=== PATIENT | male | born 1985 | race Caucasian/White ===

== ENCOUNTER 2021-01-24 13:34 | Inpatient (IN) | payer MEDICAID, SELFPAY ==
[2021-01-24 13:36] VITALS: BP 207/113; PULSE 103; RESP 15; TEMP 36.8; O2SAT 94; BMI 38.0
[2021-01-24 14:02] VITALS: O2SAT 93
[2021-01-24 14:05] VITALS: BP 171/121; PULSE 97; RESP 18; O2SAT 93
[2021-01-24 14:12] LABS: Basophils # 0.1 10^3/uL (0.0-0.1); Basophils % 0.7 %; Eosinophils % 0.3 %; Hematocrit 47.8 % (42.0-52.0); Lymphocytes # 2.9 10^3/uL (0.8-4.8); Lymphocytes % 19.8 %; Mean Corpuscular HGB Conc 33.5 g/dL (30.0-36.0); Mean Corpuscular Hemoglobin 31.3 pg (28.0-34.0); Mean Corpuscular Volume 93.4 fL (80-94); Mean Platelet Volume 8.9 fL (7.4-10.4); Monocytes # 1.1 10^3/uL (0.2-0.9); Monocytes % 7.6 %; Neutrophils % 71.3 %; Nucleated Red Blood Cells % 0 %; Platelet Count 419 10^3/cmm (130-400); Red Blood Count 5.12 10^6/uL (4.1-5.3); Red Cell Distribution Width 13.2 % (12.1-15.1); White Blood Count 14.6 10^3/uL (4.0-10.0)
--- NOTE | 2021-01-24 14:12 | CT_ITS ---
WS: [id number] CT HEAD TECHNIQUE: Noncontrast CT of the head obtained from the skullbase to the vertex. CLINICAL INFORMATION: AMS COMPARISON: None. DLP: 996.[address] scans at [facility] use at least one of these dose optimization techniques: automat ed exposure control; mA and/or kV adjustment per patient size (includes targeted exams where dose is matched to clinical indication); or iterative reconstruction. FINDINGS: Serpiginous area of increased attenuation in the right frontal lobe in the sulcus. This extends to th e cortex. Differential considerations include a prominent vessel or vascular malformation versus a sm all amount of subarachnoid hemorrhage. Recommend short interval follow-up to assess stability. In add ition this can be followed up with MRI. Normal espinoza-white differentiation. No evidence of mass or mass effect. Normal posterior fossa. No hyd rocephalus. Mastoid air cells are well aerated. Mild mucosal thickening paranasal sinuses. CT/CT head wo con* [id number] IMPRESSION: 1. Serpiginous area of increased attenuation right frontal lobe in the right f rontal sulcus. Differential considerations include vascular malformation versus a small amount of subarachnoid hemorrhage. Recommend short interval follow-up head CT to exclude hemorrhage. 2. In addition, recommend further evaluation with MRI/MRA without and with henrry olinium enhancement to assess for vascular malformation. 3. Normal espinoza-white differentiation. 4. No hydrocephalus. 5. No other significant findings. Notified Annie Steiner MD [facility] [place] at 01/24/2021 3:10 PM.
--- NOTE | 2021-01-24 14:12 | ECG_ITS ---
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 Measurements Intervals [place] Rate: 99 P: 48 GA: 137 QRS: 29 QRSD: 92 T: 42 QT: 330 QTc: 424 Interpretive Statements SINUS RHYTHM POSSIBLE LEFT ATRIAL ENLARGEMENT [-0.1mV P WAVE IN V1/V2] No previous ECG available for comparison Electronically Signed On 01-25-2021 11:07:15 GIN FEEDER by Yasmeen Lomax M.D. [email or web address] memorial hospitalBoondsouthwest general health [id number]
[2021-01-24 14:34] LABS: Alanine Aminotransferase 19 U/L (0-41); Albumin Level 4.6 g/dL (3.5-5.2); Alcohol Level 70 mg/dL (0-10); Alkaline Phosphatase 104 IU/L (40-130); Anion Gap 18.4 (5-19); Aspartate Amino Transferase 22 U/L (0-40); Blood Urea Nitrogen 6 mg/dL (6-20); Calcium 9.3 mg/dL (8.5-10.5); Carbon Dioxide 24 mmol/L (22-29); Chloride 97 mmol/L (98-107); Globulin 2.7 g/dL (1.3-4.6); Glomerular Filtration Rate 128.3 mL/min (90-130); Glucose 101 mg/dL (65-115); Osmolality Calculated 278 mOsm/kg (285-295); Potassium 4.4 mmol/L (3.5-5.1); Sodium 135 mmol/L (136-145); Total Bilirubin 0.5 mg/dL (0.15-1.2); Total Protein 7.3 g/dL (6.6-8.7)
[2021-01-24] MEDS: LORazepam 2 mg/mL INJ 1 mL IM (14:34)
[2021-01-24 14:37] LABS: Acetaminophen < 5.0 ug/mL (10-30); Salicylate < 0.3 mg/dL (3-10)
[2021-01-24] MEDS: ziprasidone 20 mg/mL SDV IM (14:47)
[2021-01-24 15:17] LABS: Add Urine Microscopic? NO
[2021-01-24 15:31] LABS: Bilirubin Urine Neg (Negative); Blood Urine Neg (Negative); Glucose Urine UA Norm (Normal); Ketones Urine Negative (Negative); Leukocyte Esterase Urine Negative (Negative); Nitrate Urine Negative (Negative); Protein Urine Neg (Negative); Urine Appearance Clear (CLEAR); Urine Color Straw (Yellow); Urobilinogen Urine Norm (Negative); pH Urine 5 (5-7)
[2021-01-24 15:38] LABS: Amphetamines Screen Urine Negative (Negative); Barbiturates Screen Urine Negative (Negative); Benzodiazepines Screen Urine Negative (Negative); Cocaine Screen Urine Negative (Negative); Opiate Screen Urine Negative (Negative); PCP Screen Urine Negative (Negative); THC Screen Urine Positive (Negative)
--- NOTE | 2021-01-24 16:58 | CTR_ITS ---
PROCEDURE INFORMATION: Exam: CT Angiography Head With Contrast, Arteries Exam date and time: 01/24/2021 5:27 PM Age: 35 years old Clinical indication: Cognitive deficit; Altered mental status; Additional info: ? Sah vs vascular malformation TECHNIQUE: Imaging protocol: Computed tomography angiography of the head with intravenous contrast. 3D rendering (Not supervised by radiologist): MIP and/or 3D reconstructed images were created by the technologist. Radiation optimization: All CT scans at this facility use at least one of these dose optimization techniques: automated exposure control; mA and/or kV adjustment per patient size (includes targeted exams where dose is matched to clinical indication); or iterative reconstruction. Contrast material: OMNI 350; Contrast volume: 95 ml; Contrast route: INTRAVENOUS (IV); COMPARISON: No relevant prior studies available. RADIATION DOSE METRICS: Total DLP (mGy-cm): 2575.58 FINDINGS: ANTERIOR CIRCULATION: Right internal carotid artery: Unremarkable. Intracranial segment is patent with no significant stenosis. No aneurysm. Right middle cerebral artery: Unremarkable. No occlusion or significant stenosis. No aneurysm. Right anterior cerebral artery: Unremarkable. No occlusion or significant stenosis. No aneurysm. Left internal carotid artery: Unremarkable. Intracranial segment is patent with no significant stenosis. No aneurysm. Left middle cerebral artery: Unremarkable. No occlusion or significant stenosis. No aneurysm. Left anterior cerebral artery: Unremarkable. No occlusion or significant stenosis. No aneurysm. POSTERIOR CIRCULATION: Right vertebral artery: Unremarkable. No occlusion or significant stenosis. No aneurysm. Left vertebral artery: Unremarkable. No occlusion or significant stenosis. No aneurysm. Basilar artery: Unremarkable. No occlusion or significant stenosis. No aneurysm. Right posterior cerebral artery: Unremarkable. No occlusion or significant stenosis. No aneurysm. Left posterior cerebral artery: Unremarkable. No occlusion or significant stenosis. No aneurysm. Brain: There is a prominent cortical vein in the right frontal lobe with smaller feature veins beginning at the periventricular white matter. No definite cavernous blush or umbrella type pattern as typically seen with a developmental venous anomaly. Cerebral ventricles: No ventriculomegaly. Bones/joints: Unremarkable. No acute fracture. Soft tissues: Unremarkable. IMPRESSION: 1. No large vessel stenosis or occlusion. 2. 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 3. No subarachnoid hemorrhage seen. PROCEDURE INFORMATION: Exam: CT Angiography Neck With Contrast Exam date and time: 01/24/2021 5:27 PM Age: 35 years old Clinical indication: Cognitive deficit; Altered mental status; Additional info: ? Sah vs vascular malformation TECHNIQUE: Imaging protocol: Computed tomography angiography of the neck with intravenous contrast. 3D rendering (Not supervised by radiologist): MIP and/or 3D reconstructed images were created by the technologist. Radiation optimization: All CT scans at this facility use at least one of these dose optimization techniques: automated exposure control; mA and/or kV adjustment per patient size (includes targeted exams where dose is matched to clinical indication); or iterative reconstruction. Contrast material: OMNI 350; Contrast volume: 95 ml; Contrast route: INTRAVENOUS (IV); COMPARISON: No relevant prior studies available. RADIATION DOSE METRICS: Total DLP (mGy-cm): 2575.58 FINDINGS: Right common carotid artery: No stenosis. No dissection or occlusion. Right internal carotid artery: No stenosis of the extracranial segment. No dissection or occlusion. Right external carotid artery: No occlusion or stenosis of the origin. Right vertebral artery: No stenosis. No dissection or occlusion. Dominant vessel. Left common carotid artery: No stenosis. No dissection or occlusion. Left internal carotid artery: No stenosis of the extracranial segment. No dissection or occlusion. Left external carotid artery: No occlusion or stenosis of the origin. Left vertebral artery: No stenosis. No dissection or occlusion. Bones/joints: No acute fracture. Soft tissues: Normal. No significant soft tissue swelling. CT/CT angio headneck* [id number] IMPRESSION: No stenosis or occlusion. REFERENCES: NASCET CRITERIA. The degree of internal carotid artery stenosis is based on NASCET criteria. Normal is no stenosis. Mild is less than 50% stenosis. Moderate is 50-69% stenosis. Severe is 70% to 99% stenosis. Total occlusion is no detectable patent lumen. Radiation Dose CTDIVOL = (mGy): DLP = 2575.58 (mGy-cm)
[2021-01-24 17:19] VITALS: PULSE 91; RESP 16; O2SAT 95
[2021-01-24] MEDS: iohexol 350 mg/mL 100 mL Btl IV (17:27)
[2021-01-24 21:43] VITALS: BP 158/112; PULSE 88; RESP 19; TEMP 36.6; O2SAT 95
[2021-01-24] MEDS: trazodone 50 mg Tablet PO (22:07)
[2021-01-24] MEDS: hyDROXYzine 25 mg Capsule 50 MG PO (22:07)
[2021-01-24] MEDS: nicotine 2 mg Gum BUCCAL (22:07)
--- NOTE | 2021-01-24 22:09 | PC.NURSE ---
Patient continues to be very anxious and is unable to sleep. Vistaril 50mg PO and Trazodone 50mg PO given.
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
--- NOTE | 2021-01-24 23:47 | PC.NURSE ---
JOINT PAIN PT STATES HE IS IN CONSTANT PAIN, TYLENOL OFFERED AND DECLINED. PT SAYS IT IS RATED AT BASELINE OF 8 ON 1-10 PAIN SCALE. PT STATES, HE HAS BACK PAIN R/T DJD.
--- NOTE | 2021-01-25 00:42 | ED_ITS ---
HPI - Psych General: Chief Complaint: Psychiatric Symptoms Stated Complaint: SI/ BIPOLAR/ ETOH Time Seen by Provider: 01/24/21 13:35 Source: patient and EMS Mode of arrival: EMS History of Present Illness: HPI Narrative: This is a 35-year-old gentleman who was brought in in a psychotic episode. The patient was loud, belligerent, delusional, paranoid and did not give much of the history. He did say that he had smoked marijuana today and drank alcohol. He denies any methamphetamine use. He did not answer a lot of questions appropriately and some of the answers were tangential. He admits to thoughts of suicide as well as homicide. He says he wants to kill everybody around him. He was pacing in the room, refused to stay still. MD complaint: suicidal ideation Duration: constant Exacerbating factors: alcohol Context: recent alcohol abuse and recent drug abuse Associated psychiatric symptoms: delusions Associated symptoms: Reports delusions If self harm: admits thoughts of self harm Review of Systems General: Reports: ROS unobtainable due to mental status PFSH ED PFSH: Social History Smoking and tobacco status: current every day smoker cigarettes Packs smoked per day: 1 Alcohol intake: current Alcohol intake frequency: holidays/special occasions only Physical Exam Const: COMMON NORMALS: no acute distress, average body habitus, patient oriented x3, no limitations, healthy appearing, alert and well nourished HENMT: COMMON NORMALS: normocephalic and moist oral mucous membranes HEAD & SCALP: normocephalic and abrasion (Multiple scalp abrasions) Eye: COMMON NORMALS: Equal, round and reactive pupils present, EOMs intact bilaterally, conjunctivae normal and no scleral icterus CONJUNCTIVA: Yes conjunctivae normal PUPIL: Yes Equal, round and reactive pupils present Neck/C-Spine: COMMON NORMALS: no meningeal signs and no JVD Resp: COMMON NORMALS: normal respiratory effort, No retractions, No use of accessory muscles, clear to auscultation bilaterally and percussion normal AUSCULTATION: clear to auscultation bilaterally PERCUSSION: percussion normal Cardio: COMMON NORMALS: no JVD, regular rate, regular rhythm, S1 normal heart sound present, S2 normal heart sound present, No gallops present (Cardio), No clicks present (Cardio), No murmurs present (Cardio), No rub (Cardio) and Peripheral pulses 2+ throughout RATE: regular rate RHYTHM: regular rhythm HEART SOUNDS: S1 normal heart sound present and S2 normal heart sound present PERIPHERAL PULSES: Peripheral pulses 2+ throughout GI: COMMON NORMALS: Normal to inspection, nondistended, normoactive bowel sounds present, Soft to palpation, non-tender, No hepatosplenomegaly present, no masses and no bruits PALPATION: Yes Soft to palpation and Yes No hepatosplenomegaly present Extremity: COMMON NORMALS: normal to inspection, full ROM, capillary refill normal, no calf tenderness and no pedal edema Neuro: COMMON NORMALS: patient oriented x3 SENSORIUM/ORIENTATION: Yes alert MENINGEAL SIGNS: Yes no meningeal signs Psych: APPEARANCE: Yes bizarre ATTITUDE: Yes paranoid, Yes bizarre, Yes Belligerent attititude/behavior present and Yes agitated ACTIVITY/MOTOR BEHAVIOR: Yes psychomotor agitation SPEECH: Yes excessive, Yes rapid and Yes loud MOOD & AFFECT: Yes elevated mood THOUGHT PROCESS: disorganized THOUGHT CONTENT: Yes delusions Skin: COMMON NORMALS: no rashes or lesions noted, no wounds, turgor normal, no jaundice, no petechiae and no mottling GENERAL SKIN EXAM: no rashes or lesions noted and turgor normal MDM - Psych MDM Narrative: Medical decision making narrative: This 35-year-old male with a history of bipolar disorder and substance abuse presents to the emergency department in acute psychosis. The patient was loud, belligerent, uncooperative, paranoid and delusional. Because of all these he had to be chemically sedated and was initially given intramuscular ketamine but also required intramuscular lorazepam and Geodon. After this the patient was easier to control. Head CT showed a questionable subarachnoid hemorrhage and so a CT angiogram of the head and neck was done which was unremarkable. The head CT was done because of his mental status and abrasion seen on the scalp. When the patient was more alert he was able to tell me that the abrasion on the scalp are because he picks at his scalp due to dry skin. He was medically cleared and is admitted to the neuropsychiatric unit for further evaluation and management Medical Records: Attestation: I reviewed the patient's medical records. Lab Data: Attestation: I reviewed the patient's lab results. Labs: Lab Results 01/24/21 01/24/21 01/24/21 Range/Units 14:00 14:00 15:00 WBC 14.6 H (4.0-10.0) 10^3/ uL RBC 5.12 (4.1-5.3) 10^6/u L Hgb 16.0 (11.7-16.6) g/dL Hct 47.8 (42.0-52.0) % MCV 93.4 (80-94) fL MCH 31.3 (28.0-34.0) pg MCHC 33.5 (30.0-36.0) g/dL RDW 13.2 (12.1-15.1) % Plt Count 419 H (130-400) 10^3/c mm MPV 8.9 (7.4-10.4) fL Neut % (Auto) 71.3 % Lymph % (Auto) 19.8 % [place] % (Auto) 7.6 % Eos % (Auto) 0.3 % Baso % (Auto) 0.7 % Neut # (Auto) 10.40 H (1.8-7.7) 10^3/u L Lymph # (Auto) 2.9 (0.8-4.8) 10^3/u L [place] # (Auto) 1.1 H (0.2-0.9) 10^3/u L Eos # (Auto) 0.0 (0.0-0.8) 10^3/u L Baso # (Auto) 0.1 (0.0-0.1) 10^3/u L Nucleated RBC % (a uto) 0 % Nucleated RBCs # 0.0 /100WBC Sodium 135 L (136-145) mmol/L Potassium 4.4 (3.5-5.1) mmol/L Chloride 97 L (98-107) mmol/L Carbon Dioxide 24 (22-29) mmol/L Anion Gap 18.4 (5-19) BUN 6 (6-20) mg/dL Creatinine 0.7 (0.7-1.2) mg/dL GFR Calculation 128.3 (90-130) mL/min Glucose 101 (65-115) mg/dL Calculated Osmolal ity 278 L (285-295) mOsm/k g Calcium 9.3 (8.5-10.5) mg/dL Total Bilirubin 0.5 (0.15-1.2) mg/dL AST 22 (0-40) U/L ALT 19 (0-41) U/L Alkaline Phosphata se 104 (40-130) IU/L Total Protein 7.3 (6.6-8.7) g/dL Albumin 4.6 (3.5-5.2) g/dL Globulin 2.7 (1.3-4.6) g/dL Urine Color Straw (Yellow) Urine Appearance Clear (CLEAR) Urine pH 5 (5-7) Ur Specific Gravit y 1.010 (1.005-1.030) Urine Protein Neg (Negative) Urine Glucose (UA) Norm (Normal) Urine Ketones Negative (Negative) Urine Blood Neg (Negative) Urine Nitrate Negative (Negative) Urine Bilirubin Neg (Negative) Urine Urobilinogen Norm (Negative) mg/dL Ur Leukocyte Jessi ase Negative (Negative) Salicylates < 0.3 L (3-10) mg/dL Urine Opiates Scre en (Negative) ng/mL Acetaminophen < 5.0 L (10-30) ug/mL Ur Barbiturates Sc reen (Negative) ng/mL Ur Phencyclidine S crn (Negative) ng/mL Ur Amphetamines Sc reen (Negative) ng/mL U Benzodiazepines Scrn (Negative) ng/mL Urine Cocaine Scre en (Negative) ng/mL U Marijuana (THC) Screen (Negative) ng/mL Ethyl Alcohol 70 H (0-10) mg/dL 01/24/21 Range/Units 15:00 WBC (4.0-10.0) 10^3/ uL RBC (4.1-5.3) 10^6/u L Hgb (11.7-16.6) g/dL Hct (42.0-52.0) % MCV (80-94) fL MCH (28.0-34.0) pg MCHC (30.0-36.0) g/dL RDW (12.1-15.1) % Plt Count (130-400) 10^3/c mm MPV (7.4-10.4) fL Neut % (Auto) % Lymph % (Auto) % [place] % (Auto) % Eos % (Auto) % Baso % (Auto) % Neut # (Auto) (1.8-7.7) 10^3/u L Lymph # (Auto) (0.8-4.8) 10^3/u L [place] # (Auto) (0.2-0.9) 10^3/u L Eos # (Auto) (0.0-0.8) 10^3/u L Baso # (Auto) (0.0-0.1) 10^3/u L Nucleated RBC % (a uto) % Nucleated RBCs # /100WBC Sodium (136-145) mmol/L Potassium (3.5-5.1) mmol/L Chloride (98-107) mmol/L Carbon Dioxide (22-29) mmol/L Anion Gap (5-19) BUN (6-20) mg/dL Creatinine (0.7-1.2) mg/dL GFR Calculation (90-130) mL/min Glucose (65-115) mg/dL Calculated Osmolal ity (285-295) mOsm/k g Calcium (8.5-10.5) mg/dL Total Bilirubin (0.15-1.2) mg/dL AST (0-40) U/L ALT (0-41) U/L Alkaline Phosphata se (40-130) IU/L Total Protein (6.6-8.7) g/dL Albumin (3.5-5.2) g/dL Globulin (1.3-4.6) g/dL Urine Color (Yellow) Urine Appearance (CLEAR) Urine pH (5-7) Ur Specific Gravit y (1.005-1.030) Urine Protein (Negative) Urine Glucose (UA) (Normal) Urine Ketones (Negative) Urine Blood (Negative) Urine Nitrate (Negative) Urine Bilirubin (Negative) Urine Urobilinogen (Negative) mg/dL Ur Leukocyte Jessi ase (Negative) Salicylates (3-10) mg/dL Urine Opiates Scre en Negative (Negative) ng/mL Acetaminophen (10-30) ug/mL Ur Barbiturates Sc reen Negative (Negative) ng/mL Ur Phencyclidine S crn Negative (Negative) ng/mL Ur Amphetamines Sc reen Negative (Negative) ng/mL U Benzodiazepines Scrn Negative (Negative) ng/mL Urine Cocaine Scre en Negative (Negative) ng/mL U Marijuana (THC) Screen Positive H (Negative) ng/mL Ethyl Alcohol (0-10) mg/dL Imaging Data^: CT Head: Attestation: I personally reviewed and interpreted this imaging study as follows: Radiologist's impression: [address] [place] [address] CT Scan Report Signed Patient: Floresita Granda #: [id number] : 1985Acct#:[id number] Age/Sex: 35 / MADM Date: 01/24/21 Loc: ERRoom/Bed: Attending Dr: Ordering Provider/Ordering MD: Annie Steiner MD, [facility] [place] Date of Service: 01/24/21 Procedure(s): CT head wo con* [id number] Accession Number(s): [id number] Report Number: [id number] WS: [id number] CT HEAD TECHNIQUE: Noncontrast CT of the head obtained from the skullbase to the vertex. CLINICAL INFORMATION: AMS COMPARISON: None. DLP: 996.[address] scans at [facility] use at least one of these dose optimization techniques: automated exposure control; mA and/or kV adjustment per patient size (includes targeted exams where dose is matched to clinical indication); or iterative reconstruction. FINDINGS: Serpiginous area of increased attenuation in the right frontal lobe in the sulcus. This extends to the cortex. Differential considerations include a prominent vessel or vascular malformation versus a small amount of subarachnoid hemorrhage. Recommend short interval follow-up to assess stability. In addition this can be followed up with MRI. Normal espinoza-white differentiation. No evidence of mass or mass effect. Normal posterior fossa. No hydrocephalus. Mastoid air cells are well aerated. Mild mucosal thickening paranasal sinuses. CT/CT head wo con* [id number] IMPRESSION: 1. Serpiginous area of increased attenuation right frontal lobe in the right frontal sulcus. Differential considerations include vascular malformation versus a small amount of subarachnoid hemorrhage. Recommend short interval follow-up head CT to exclude hemorrhage. 2. In addition, recommend further evaluation with MRI/MRA without and with gadolinium enhancement to assess for vascular malformation. 3. Normal espinoza-white differentiation. 4. No hydrocephalus. 5. No other significant findings. Notified Annie Steiner MD [facility] at 01/24/2021 3:10 PM. Dictated By:Sandro Pritchett MD Signed By:Sandro Pritchett MDSigned Date/Time:01/24/21 1515 DD/ [address]: Attestation: I personally reviewed and interpreted this imaging study as follows: Radiologist's impression: [address] [address] [address] Scan Report Signed Patient: Floresita Granda #: [id number] : 1985Acct#:[id number] Age/Sex: 35 / MADM Date: 01/24/21 Loc: ERRoom/Bed: Attending Dr: Ordering Provider/Ordering MD: Annie Steiner MD, [facility] [place] Date of Service: 01/24/21 Procedure(s): CT angio headneck* [id number] Accession Number(s): [id number] Report Number: [id number] PROCEDURE INFORMATION: Exam: CT Angiography Head With Contrast, Arteries Exam date and time: 01/24/2021 5:27 PM Age: 35 years old Clinical indication: Cognitive deficit; Altered mental status; Additional info: ? Sah vs vascular malformation TECHNIQUE: Imaging protocol: Computed tomography angiography of the head with intravenous contrast. 3D rendering (Not supervised by radiologist): MIP and/or 3D reconstructed images were created by the technologist. Radiation optimization: All CT scans at this facility use at least one of these dose optimization techniques: automated exposure control; mA and/or kV adjustment per patient size (includes targeted exams where dose is matched to clinical indication); or iterative reconstruction. Contrast material: OMNI 350; Contrast volume: 95 ml; Contrast route: INTRAVENOUS (IV); COMPARISON: No relevant prior studies available. RADIATION DOSE METRICS: Total DLP (mGy-cm): 2575.58 FINDINGS: ANTERIOR CIRCULATION: Right internal carotid artery: Unremarkable. Intracranial segment is patent with no significant stenosis. No aneurysm. Right middle cerebral artery: Unremarkable. No occlusion or significant stenosis. No aneurysm. Right anterior cerebral artery: Unremarkable. No occlusion or significant stenosis. No aneurysm. Left internal carotid artery: Unremarkable. Intracranial segment is patent with no significant stenosis. No aneurysm. Left middle cerebral artery: Unremarkable. No occlusion or significant stenosis. No aneurysm. Left anterior cerebral artery: Unremarkable. No occlusion or significant stenosis. No aneurysm. POSTERIOR CIRCULATION: Right vertebral artery: Unremarkable. No occlusion or significant stenosis. No aneurysm. Left vertebral artery: Unremarkable. No occlusion or significant stenosis. No aneurysm. Basilar artery: Unremarkable. No occlusion or significant stenosis. No aneurysm. Right posterior cerebral artery: Unremarkable. No occlusion or significant stenosis. No aneurysm. Left posterior cerebral artery: Unremarkable. No occlusion or significant stenosis. No aneurysm. Brain: There is a prominent cortical vein in the right frontal lobe with smaller feature veins beginning at the periventricular white matter. No definite cavernous blush or umbrella type pattern as typically seen with a developmental venous anomaly. Cerebral ventricles: No ventriculomegaly. Bones/joints: Unremarkable. No acute fracture. Soft tissues: Unremarkable. IMPRESSION: 1. No large vessel stenosis or occlusion. 2. 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 3. No subarachnoid hemorrhage seen. PROCEDURE INFORMATION: Exam: CT Angiography Neck With Contrast Exam date and time: 01/24/2021 5:27 PM Age: 35 years old Clinical indication: Cognitive deficit; Altered mental status; Additional info: ? Sah vs vascular malformation TECHNIQUE: Imaging protocol: Computed tomography angiography of the neck with intravenous contrast. 3D rendering (Not supervised by radiologist): MIP and/or 3D reconstructed images were created by the technologist. Radiation optimization: All CT scans at this facility use at least one of these dose optimization techniques: automated exposure control; mA and/or kV adjustment per patient size (includes targeted exams where dose is matched to clinical indication); or iterative reconstruction. Contrast material: OMNI 350; Contrast volume: 95 ml; Contrast route: INTRAVENOUS (IV); COMPARISON: No relevant prior studies available. RADIATION DOSE METRICS: Total DLP (mGy-cm): 2575.58 FINDINGS: Right common carotid artery: No stenosis. No dissection or occlusion. Right internal carotid artery: No stenosis of the extracranial segment. No dissection or occlusion. Right external carotid artery: No occlusion or stenosis of the origin. Right vertebral artery: No stenosis. No dissection or occlusion. Dominant vessel. Left common carotid artery: No stenosis. No dissection or occlusion. Left internal carotid artery: No stenosis of the extracranial segment. No dissection or occlusion. Left external carotid artery: No occlusion or stenosis of the origin. Left vertebral artery: No stenosis. No dissection or occlusion. Bones/joints: No acute fracture. Soft tissues: Normal. No significant soft tissue swelling. CT/CT angio headneck* [id number] IMPRESSION: No stenosis or occlusion. REFERENCES: NASCET CRITERIA. The degree of internal carotid artery stenosis is based on NASCET criteria. Normal is no stenosis. Mild is less than 50% stenosis. Moderate is 50-69% stenosis. Severe is 70% to 99% stenosis. Total occlusion is no detectable patent lumen. Radiation Dose CTDIVOL = (mGy): DLP = 2575.58 (mGy-cm) Dictated By:Yosvany Howe Signed By:Yosvany HoweSichristopher Date/Time:01/24/21 1800 DD/ 1758 EKG Data^: EKG 1: Attestation: I personally reviewed and interpreted this EKG as follows: EKG interpretation date: 01/24/21 EKG interpretation time: 14:09 Prior EKG tracings: not available for review Interpretation: Normal sinus rhythm. Heart rate [address] changes. Normal axis. Discharge Plan Discharge Patient Disposition: Admitted As Inpatient Admit Provider: Talha Lai Clinical Impression: Acute psychosis, Suicidal ideation, Homicidal ideation, Polysubstance abuse Condition: Stable Coding Level of Care Code ED [employer] for Carolin Aleman
[2021-01-25 06:00] VITALS: BP 142/89; PULSE 76; RESP 18; TEMP 36.5; O2SAT 95
[2021-01-25] MEDS: pantoprazole DR 40 mg Tablet PO (08:29)
[2021-01-25] MEDS: acetaminophen 325 mg Tablet 650 MG PO (08:29)
[2021-01-25] MEDS: ibuprofen 600 mg Tablet PO (10:19)
--- NOTE | 2021-01-25 13:42 | P.HP_ITS ---
Providers/Chief Complaint Admitting Physician: Talha Lai MD Chief Complaint: SI/ BIPOLAR/ ETOH HPI NPU History of Present Illness Holden Granda is a 35 year old male who presented to the emergency department with the following report: Chief Complaint: Psychiatric Symptoms Stated Complaint: SI/ BIPOLAR/ ETOH Time Seen by Provider: 01/24/21 13:35 Source: patient and EMS Mode of arrival: EMS History of Present Illness: HPI Narrative: This is a 35-year-old gentleman who was brought in in a psychotic episode. The patient was loud, belligerent, delusional, paranoid and did not give much of the history. He did say that he had smoked marijuana today and drank alcohol. He denies any methamphetamine use. He did not answer a lot of questions appropriately and some of the answers were tangential. He admits to thoughts of suicide as well as homicide. He says he wants to kill everybody around him. He was pacing in the room, refused to stay still. complaint: suicidal ideation Duration: constant Exacerbating factors: alcohol Context: recent alcohol abuse and recent drug abuse Associated psychiatric symptoms: delusions Associated symptoms: Reports delusions If self harm: admits thoughts of self harm. He was admitted to the neuropsychiatric unit for definitive treatment of those issues. Today he presents reporting that everything was a big misunderstanding. He really does not need to be in the hospital. He reports a long history of psychiatric treatment endorsing to many psychiatric inpatient stays to count being very irritable way. He reports starting to 17 years old when he reports there were signs of schizophrenia. He reports that the medications did not work at the time and he did not have significant support from his family. He denies ever being admitted inpatient at [facility] and reports his last inpatient hospitalization was probably about 3 years ago. He reports that he is from [place] about [place] minutes east of [place]. He reports he had 3 suicide attempts the last of which was maybe about 6 years ago. He reports that he smokes about half a pack of cigarettes a day, he does not drink alcohol the time but he does periodically, report smoking marijuana daily but denies any other illicit drugs reporting he has done them in the past but not for 10 to 15 years. He reports attending about 10 rehabs in his life and having about 3 DUIs. He reports that he does still hear voices and he was last on Invega but he does not want to restart Invega because he endorses or believes that it is responsible for the sweating and that he experiences even now having been off of it for a long time. He reports that there are many stressors that lead to him not doing well including the lack of support of his family the feeling like no one listens to him, the fact that he had a son that 12 years ago since that December is always about time for him. He initially was resistant to medication but then later we discussed the risk benefits and alternatives of initiating Abilify and he understood and agreed to proceed as is documented in this note. Psychiatric history: As above. Substance abuse history: As above. Family history: He denies mental health or addiction issues on either side of his family or any suicide attempts or completions in his family. 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 But reported learning to walk and talk and met his developmental milestones on time. He reports that when he went off to school that he does not remember needing speech therapy but does report periods of learning support, muscles or special education classes. Psychosocial history: He reports his mother and father were never really together and that he is the only product of that union. He reports that his mother has an older daughter than him and a younger daughter than him that are his half siblings but that the older one and that his father has 2 sons that are younger than him that are his half siblings. He reports his childhood was rough with emotional abuse but denied sexual or physical abuse. He endorsed graduating high school and having some college. Endorses being a heterosexual with his longest being 3 years he never been he has a 13-year-old daughter that is with his mother/the child's paternal grandmother, he is never been in the and he denies any protestant belief system. His longest time of 1 job was 2 years, he currently lives in a trailer with his girlfriend. Legal history: He endorses to many incarcerations dimensions of the longest one being 5 months. Medical history: Please see ED note for full details. Meds NPU Home Medications Medication Instructions Recorded Confirmed Last Taken Type omeprazole 20 mg capsule,delayed 20 mg PO DAILY #30 cap 01/17/21 01/24/21 01/24/21 06:00 Rx release selenium sulfide 1 % shampoo 10 ml TOPICAL DAILY #207 ml 02/19/21 02/26/21 Unknown Rx dihskxz-eijfqkejeasqf-bouaurmk 5 tab PO PRN 01/24/21 01/24/21 Unknown History [Excedrin Migraine] Allergies Allergy/AdvReac Type Severity Reaction Status Date / Time varenicline [From Chantix] Allergy ALGY-Hives Verified 01/24/21 15:11 PFSH NPU PFSH: Social History Smoking and tobacco status: current every day smoker cigarettes Packs smoked per day: 1 Alcohol intake: current Alcohol intake frequency: holidays/special occasions only Mental Status Exam MSE Comments: This is an obese white male in hospital scrubs with multiple tattoos on exposed skin with limited grooming and eye contact. No abnormal movements except for mild psychomotor agitation. Mostly cooperative with exam in no acute distress. Speech was decreased rate and volume. Mood described as decent, affect irritable. Thought process mostly organized. Thought content: Patient denied suicidal or homicidal ideations, he endorsed paranoia and he did appear somewhat guarded, endorsed auditory hallucinations. Attention and concentration were limited and memory appeared mostly reliable but none were formally tested. He is alert and oriented x3. Insight and judgment are limited, impulse control is limited, intellectual ability is questionable. Vitals/I&O/Wt Last Vital Signs Temp 97.7 F 01/25/21 06:00 Pulse 76 01/25/21 06:00 Resp 18 01/25/21 06:00 BP 142/89 01/25/21 06:00 Pulse Ox 95 01/25/21 06:00 Weight last 48 hrs Weight 113.398 kg Data NPU : 01/24/21 14:00 01/24/21 14:00 A&P Assessment and plan (1) Acute psychosis: Status: Acute (2) Suicidal ideation: Status: Acute (3) Homicidal ideation: Status: Acute (4) Polysubstance abuse: Status: Acute (5) History of psychiatric disorder: Status: Acute Additional A&P Information This is a 35-year-old white male who presents with active addiction, acute psychosis with a reported history of thought disorder, off of his medication for some time reportedly open to restarting treatment and medication. 1. Continue current medication. Except start Abilify 10 mg p.o. every morning. 2. Continue every 15 minute checks for safety. 3. Encourage individual, group and milieu therapies. 4. Encourage sober living treatment after discharge at the highest level of care to which he is willing to commit. Involuntary Hold Information 96 Hour Hold: 96 Hour Involuntary Admission: Yes 96 Hour Hold Ending Date: 01/30/21 96 Hour Hold Ending Time: 18:40 Attestations NPU Medical Necessity Statement*: Inpatient hospitalization is medically necessary and the clinically appropriate intervention at this time. We will monitor medications and make changes as indicated. Patient will be in the hospital for over two midnights. Likely length of stay 3 to 5 days. Coding Level of Care Code Acute Scientific Publications Editor for Carolin Fwd Diagnoses Acute psychosis F23 Suicidal ideation R45.851 Homicidal ideation R45.850 Polysubstance abuse F19.10 History of psychiatric disorder Z86.59
[2021-01-25 14:00] VITALS: BP 127/82; PULSE 83; RESP 16; TEMP 36.6; O2SAT 92
[2021-01-25] MEDS: ARIPiprazole 10 mg Tablet PO (15:33)
--- NOTE | 2021-01-25 15:34 | PC.NURSE ---
PT BEHAVBIOR; AT APPROXIMATELY 1515 CLIENT GOT OFF THE PHONE FROM TALKING TO HIS MOTHER AND BECAME VERY IRRITATED AND UPSET. CLIENT WENT DOWN THEW HALLWAY AND PUNCHED TWO WHOLES IN THE WALL OUTSIDE OF HIS ROOM. SECUTIRY WAS CALLED TO THE UNIT AND ASSEMBLY WORKER HAD JUST ENTERED THE UNIT AFTER THE EVENT. CLIENT CAME UP TO THE NURSES STATION CURSING AT STAFF MEMBERS USING DEROGATORY LANGUAGE IN HIS DESCRIPTION OF NURSING STAFF. CLIENT COMPLAINED ABOUT THE TEMPERATURE IN HIS ROOM WHICH STAFF HAD ADJUSTED FOR HIM. CLIENT CAME BACK UP TO THE NURSES STATION AGAIN STATING HE WANTED HIS MOTHER REMOVED FROM HIS CONTACT LIST. CLIENT WAS MEDICATED WITH 10MG OF ABILIFY ORDERED BY THE PSYCHIATRIST DR. MCNEAL.
[2021-01-25] MEDS: OLANZapine 5 mg ODT PO (15:45)
--- NOTE | 2021-01-25 15:56 | PC.NURSE ---
PRN Zyprexa Zydis Patient became explosive because the temperature in his room was too hot. He punched 2 holes in the wall. Security and house super verbally de-escalated him and attempted to adjust his room temperature and he was given 5 mg Zyprexa Zydis for anxiety.
[2021-01-25] MEDS: trazodone 50 mg Tablet PO (20:23)
[2021-01-25] MEDS: hyDROXYzine 25 mg Capsule 50 MG PO (20:24)
[2021-01-25 20:58] VITALS: BP 145/93; PULSE 90; RESP 19; TEMP 36.9; O2SAT 94
[2021-01-26] MEDS: LORazepam 2 mg Tablet PO (02:57)
[2021-01-26] MEDS: ondansetron 4 MG Tablet PO (02:58)
--- NOTE | 2021-01-26 02:59 | PC.NURSE ---
ciwa 13/meds given prn ativan 2mg PO given for alcohol withdrawl, score of 13 on ciwa, beads of sweat,increased agitation, sensitive to noise/light, irritable, nauseated, and pacing. prn zofran 4mg po given for nausea, will continue to monitor patient condition for changes in condition
--- NOTE | 2021-01-26 03:59 | PC.NURSE ---
Ciwa 4-improved from a Ciwa of 13 follow up zofran-decreased nausea follow up ativan- decreased s/s withdrawl, pt resting at this time.
[2021-01-26 06:00] VITALS: BP 153/95; PULSE 95; RESP 18; TEMP 36.7; O2SAT 97
[2021-01-26] MEDS: pantoprazole DR 40 mg Tablet PO (08:26)
[2021-01-26] MEDS: folic acid 1 mg Tablet PO (08:26)
[2021-01-26] MEDS: ARIPiprazole 10 mg Tablet PO (08:26)
[2021-01-26] MEDS: thiamine 100 mg Tablet PO (08:26)
[2021-01-26] MEDS: multivitamin therapeutic Tablet 1 TAB PO (08:26)
[2021-01-26] MEDS: nicotine 2 mg Gum BUCCAL (08:26)
--- NOTE | 2021-01-26 13:59 | PM.NPN ---
Subjective NPU Subjective: Interval history: Holden presents today reporting that things are improving on the medication. He denies interest however in [facility] or rehab at this point. He reports he plans to return home and plans to do outpatient services. He reports that he is sleeping okay and denies any major issues. He was lobbying for discharge again and we discussed the possibility of discharge tomorrow. Mental Status Exam MSE Comments: This is an obese white male in hospital scrubs with multiple tattoos on exposed skin with limited grooming and eye contact. No abnormal movements except for mild psychomotor retardation. Mostly cooperative with exam in no acute distress. Speech was more normal rate and volume. Mood described as better, affect less irritable. Thought process mostly organized. Thought content: Patient denied suicidal or homicidal ideations, he endorsed improvement in paranoia and he did appear less guarded, denied auditory or visual hallucinations attention and concentration were improving and memory appeared mostly reliable but none were formally tested. He is alert and oriented x3. Insight and judgment are improving, impulse control appears improved, intellectual ability is questionable. Vitals/I&O/Wt Last Vital Signs Temp 98.3 F 01/26/21 22:00 Pulse 87 01/26/21 22:00 Resp 17 01/26/21 22:00 BP 154/85 01/26/21 22:00 Pulse Ox 94 01/26/21 22:00 Weight last 48 hrs Weight 113.398 kg Data NPU : 01/24/21 14:00 01/24/21 14:00 A&P Additional A&P Information (1) Acute psychosis: (2) Suicidal ideation: (3) Homicidal ideation: (4) Polysubstance abuse: (5) History of psychiatric disorder: Additional A&P Information This is a 35-year-old white male who presents with active addiction, acute psychosis with a reported history of thought disorder, off of his medication for some time reportedly open to restarting treatment and medication. 1. Continue current medication. 2. Continue every 15 minute checks for safety. 3. Encourage individual, group and milieu therapies. 4. Encourage sober living treatment after discharge at the highest level of care to which he is willing to commit. Involuntary Hold Information 96 Hour Hold: 96 Hour Involuntary Admission: Yes 96 Hour Hold Ending Date: 01/30/21 96 Hour Hold Ending Time: 18:40 Attestations NPU Medical Necessity Statement*: Inpatient hospitalization is medically necessary and the clinically appropriate intervention at this time. We will monitor medications and make changes as indicated. Likely length of stay 1-3 days. Coding Level of Care Code Acute Natural Resource Economist for Carolin Aleman
[2021-01-26 14:00] VITALS: BP 128/94; PULSE 78; RESP 18; TEMP 36.7
[2021-01-26] MEDS: trazodone 50 mg Tablet PO (20:16)
[2021-01-26] MEDS: hyDROXYzine 25 mg Capsule 50 MG PO (20:16)
[2021-01-26 22:00] VITALS: BP 154/85; PULSE 87; RESP 17; TEMP 36.8; O2SAT 94
[2021-01-27 06:00] VITALS: BP 152/100; PULSE 80; RESP 17; TEMP 36.3; O2SAT 94
[2021-01-27] MEDS: multivitamin therapeutic Tablet 1 TAB PO (08:10)
[2021-01-27] MEDS: pantoprazole DR 40 mg Tablet PO (08:10)
[2021-01-27] MEDS: thiamine 100 mg Tablet PO (08:10)
[2021-01-27] MEDS: ARIPiprazole 10 mg Tablet PO (08:10)
[2021-01-27] MEDS: folic acid 1 mg Tablet PO (08:10)
[2021-01-27] MEDS: nicotine 2 mg Gum BUCCAL (08:52)
--- NOTE | 2021-01-27 16:02 | P.DS_ITS ---
Diagnoses at Discharge Discharge Diagnosis (1) Acute psychosis: Status: Resolved (2) Suicidal ideation: Status: Resolved (3) Homicidal ideation: Status: Resolved (4) Polysubstance abuse: Status: Acute (5) History of psychiatric disorder: Status: Acute Reason for Visit Reason for Visit: SI/ BIPOLAR/ ETOH Brief History: History of Present Illness Holden Granda is a 35 year old male who presented to the emergency department with the following report: Chief Complaint: Psychiatric Symptoms Stated Complaint: SI/ BIPOLAR/ ETOH Time Seen by Provider: 01/24/21 13:35 Source: patient and EMS Mode of arrival: EMS History of Present Illness: HPI Narrative: This is a 35-year-old gentleman who was brought in in a psychotic episode. The patient was loud, belligerent, delusional, paranoid and did not give much of the history. He did say that he had smoked marijuana today and drank alcohol. He denies any methamphetamine use. He did not answer a lot of questions appropriately and some of the answers were tangential. He admits to thoughts of suicide as well as homicide. He says he wants to kill everybody around him. He was pacing in the room, refused to stay still. MD complaint: suicidal ideation Duration: constant Exacerbating factors: alcohol Context: recent alcohol abuse and recent drug abuse Associated psychiatric symptoms: delusions Associated symptoms: Reports delusions If self harm: admits thoughts of self harm. He was admitted to the neuropsychiatric unit for definitive treatment of those issues. Today he presents reporting that everything was a big misunderstanding. He really does not need to be in the hospital. He reports a long history of psychiatric treatment endorsing to many psychiatric inpatient stays to count being very irritable way. He reports starting to 17 years old when he reports there were signs of schizophrenia. He reports that the medications did not work at the time and he did not have significant support from his family. He denies ever being admitted inpatient at [facility] and reports his last inpatient hospitalization was probably about 3 years ago. He reports that he is from [place] about [place] minutes east of [place]. He reports he had 3 suicide attempts the last of which was maybe about 6 years ago. He reports that he smokes about half a pack of cigarettes a day, he does not drink alcohol the time but he does periodically, report smoking marijuana daily but denies any other illicit drugs reporting he has done them in the past but not for 10 to 15 years. He reports attending about 10 rehabs in his life and having about 3 DUIs. He reports that he does still hear voices and he was last on Invega but he does not want to restart Invega because he endorses or believes that it is responsible for the sweating and that he experiences even now having been off of it for a long time. He reports that there are many stressors that lead to him not doing well including the lack of support of his family the feeling like no one listens to him, the fact that he had a son that 12 years ago since that December is always about time for him. He initially was resistant to medication but then later we discussed the risk benefits and alternatives of initiating Abilify and he understood and agreed to proceed as is documented in this note. Psychiatric history: As above. Substance abuse history: As above. Family history: He denies mental health or addiction issues on either side of his family or any suicide attempts or completions in his family. 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 But reported learning to walk and talk and met his developmental milestones on time. He reports that when he went off to school that he does not remember needing speech therapy but does report periods of learning support, muscles or special education classes. Psychosocial history: He reports his mother and father were never really together and that he is the only product of that union. He reports that his mother has an older daughter than him and a younger daughter than him that are his half siblings but that the older one and that his father has 2 sons that are younger than him that are his half siblings. He reports his childhood was rough with emotional abuse but denied sexual or physical abuse. He endorsed graduating high school and having some college. Endorses being a heterosexual with his longest being 3 years he never been he has a 13-year-old daughter that is with his mother/the child's paternal grandmother, he is never been in the and he denies any rastafari belief system. His longest time of 1 job was 2 years, he currently lives in a trailer with his girlfriend. Legal history: He endorses to many incarcerations dimensions of the longest one being 5 months. Medical history: Please see ED note for full details. Hospital Course Hospital Course Holden presented to the emergency department positive for alcohol marijuana, with active psychosis and off of medication. He was admitted to the neuropsychiatric unit for definitive treatment of those issues. He slowly acclimated to the individual, group and milieu therapies provided. He was ambivalent initially about medication and did not want to restart his previous medication. He was started on Abilify 10 mg p.o. every morning and had a positive response. He was able to contract for safety outside the hospital and had a reasonable support system to continue his convalescence outpatient. Dur ing the hospitalization, patient had routine laboratory studies which were within normal limits except for few outliers. Additionally there was a general medical evaluation which was also within normal limits and revealed no new acute processes. Discharge Summary: At the time of discharge, lethality was denied and psychosis was resolving. Mood and anxiety were well managed. Patient endorsed a plan to avoid all drugs of abuse and follow-up with the aftercare recommendations of the treatment team. Patient was evaluated and deemed to be absent credible lethality, and had achieved the maximum benefit from an inpatient hospitalization, so was discharged. Involuntary Hold Information 96 Hour Hold: 96 Hour Involuntary Admission: Yes 96 Hour Hold Ending Date: 01/30/21 96 Hour Hold Ending Time: 18:40 Mental Status Exam MSE Comments: This is an obese white male in hospital scrubs with multiple tattoos on exposed skin with limited grooming and eye contact. No abnormal movements except for resolving mild psychomotor retardation. Mostly cooperative with exam in no acute distress. Speech was more normal rate and volume. Mood described as better, affect congruent. Thought process mostly organized. Thought content: Patient denied suicidal or homicidal ideation, he endorsed improvement in paranoia and he did appear less guarded, denied auditory or visual hallucinations attention and concentration were improving and memory appeared mostly reliable but none were formally tested. He is alert and oriented x3. Insight and judgment are improving, impulse control appears improved, intellectual ability is questionable. Discharge Data Data Completed and Pending: Completed Studies During Hospitalization Category Date Time Status CT angio headneck * [id number] Stat Cat Scan 01/24/21 16:[address] head wo con* [id number] Urgent Cat Scan 01/24/21 14:12 Completed Vitals: Last Vital Signs Temp 97.3 F L 01/27/21 06:00 Pulse 80 01/27/21 06:00 Resp 17 01/27/21 06:00 BP 152/100 01/27/21 06:00 Pulse Ox 94 01/27/21 06:00 Discharge Plan Discharge Patient Disposition: Home Condition: Stable Prescriptions: New trazodone 50 mg Tablet 50 mg PO BEDTIME PRN (Reason: Sleep) 30 Days Qty: 30 RF: 1 pantoprazole 40 mg Tablet,Delayed Release (Dr/Ec) 40 mg PO DAILY 30 Days Qty: 30 RF: 1 aripiprazole 10 mg Tablet 10 mg PO DAILY 30 Days Qty: 30 RF: 1 Vitamin B-1 (mononitrate) 100 mg Tablet 100 mg PO DAILY 30 Days Qty: 30 RF: 1 Continued Dandruff Shampoo (selenium) 1 % shampoo 10 ml topical DAILY Qty: 207 RF: 1 Excedrin Migraine 250-250-65 mg Tablet 5 tab PO PRN RF: 0 Discontinued omeprazole 20 mg capsule,delayed release(DR/EC) 20 mg PO DAILY Qty: 30 RF: 5 Discharge Orders: Discharge Order (Routine); Ordered 01/27/21 Ordered By: Talha Lai Referrals: [facility] [Outside] - 4-7 days (Follow up for initial assessment.) Discharge Diet: Regular Discharge Activity: Resume usual activity Patient Instructions: Trazodone (By mouth), Thiamine (Vitamin B-1) (By mouth), Pantoprazole (By mouth), Aripiprazole (By mouth), Suicide Prevention for Adults (DC), Anxiety (DC) Discharge Attestations NPU Time Spent in Discharge Care*: less than 30 min Specific Discharge Activities: Specific discharge activities: educating patient, discussing with case packer/social workers/dc planners, document ing/other paperwork and evaluating patient/reviewing data Coding Level of Care Code Acute Search Engine Marketing Strategist for Chg Fwd Diagnoses Acute psychosis F23 Suicidal ideation R45.851 Homicidal ideation R45.850 Polysubstance abuse F19.10 History of psychiatric disorder Z86.59
[2021-01-27 16:05] VITALS: BP 152/100; PULSE 80; RESP 17; TEMP 36.3; O2SAT 94
== END 2021-01-27 16:58 | disposition home or self-care (01) | DRG 885 ==
LOC: ER 14:24 → NP 19:24
PROVIDERS: Admitting Provider Psychiatry & Neurology Psychiatry; Emergency Provider Family Medicine; Visit Provider Psychiatry & Neurology Psychiatry
DX: F23 Brief psychotic disorder (principal); R45.851 Suicidal ideations; F31.9 Bipolar disorder, unspecified; R45.850 Homicidal ideations; F12.10 Cannabis abuse, uncomplicated; F10.10 Alcohol abuse, uncomplicated; Y90.9 Presence of alcohol in blood, level not specified; F17.210 Nicotine dependence, cigarettes, uncomplicated; Z91.14 Patient's other noncompliance with medication regimen
CPT/HCPCS: 51701; 70450; 70496; 70498; 80053; 80306; 80307; 81003; 85025; 93005; 96372; 99285; J2060; J3411; J3486; J3490; Q0162; Q9967